=== PATIENT | female | born 1980 | race African-American/Black ===

== ENCOUNTER 2018-08-25 05:00 | Inpatient (IN) ==
[2018-08-25] MEDS ORDERED: ONDANSETRON 4 MG/2 ML VIAL IV STA (06:02)
[2018-08-25] MEDS ORDERED: SODIUM CHLORIDE 0.9% 1,000 ML IV STA (06:02)
[2018-08-25 06:08] LABS: Basophils % 0.2 % (0.0-0.8); Hematocrit 44.3 VOL% (35.7-47.0); Hemoglobin 14.2 GM/DL (12.0-16.0); Immature Granulocytes % 0.3 %; Immature Granulocytes Absolute 0.04 #; Lymphocytes # 2.3 10*3/uL (1.4-4.0); Lymphocytes % 17.5 % (21.3-54.2); Mean Corpuscular HGB Conc 32.1 GM/DL (32-36); Mean Corpuscular Hemoglobin 26 PG (27-34); Mean Corpuscular Volume 80.1 FL (87-102); Mean Platelet Volume 10.6 FL (9.6-12.0); Monocytes # 0.7 10*3/uL (0.11-0.8); Monocytes % 5.4 % (1.7-12.7); Neutrophils # 10.1 10*3/uL (1.4-7.4); Neutrophils % 76.6 % (38.7-73.9); Platelet Count 305 T/CUMM (130-400); Red Blood Count 5.53 MC/CUMM (3.8-5.5); Red Cell Distribution Width 15.7 % (9.3-17.3); White Blood Count 13.2 T/CUMM (4-12)
[2018-08-25 06:30] LABS: Alanine Aminotransferase 28 U/L (13-56); Alkaline Phosphatase 101 U/L (45-117); Aspartate Amino Transferase 25 U/L (0-37); Blood Urea Nitrogen 23 MG/DL (7-18); Calcium 9.5 MG/DL (8.5-10.1); Glucose 120 MG/DL (74-106); Lipase < 50.0 U/L (73-393); Osmolality,Calculated 283.4 MOS/KG (273-304); Potassium 3.4 MMOL/L (3.5-5.1); Sodium 140 MMOL/L (136-145)
[2018-08-25 06:34] LABS: Apearance,Urine CLOUDY (Clear); Bilirubin,Urine Small mg/dL (Negative); Blood, Urine Moderate mg/dL (Negative); Glucose,Urine (UA) 50 mg/dL (Negative); Hyaline Casts,Urine 25 /LPF (0-3); Ketones,Urine 80 mg/dL (Negative); Mucus,Urine Many /LPF (Occasional); Nitrite,Urine Negative (Negative); Protein,Urine >=500 MG/DL; RBC,Urine 12 /HPF (0-4); Squamous Epithelial Cell,Urine Few /HPF (0-10); Urine Color Amber (Yellow); Urine Specific Gravity 1.034 (1.001-1.035); WBC,Urine 3 /HPF (0-6)
[2018-08-25] MEDS ORDERED: PANTOPRAZOLE 40 MG VIAL IV STA (06:45)
[2018-08-25] MEDS ORDERED: POTASSIUM CHLORIDE RIDER 10 MEQ in PREMIX 1 EACH IV PRN (07:54)
[2018-08-25] MEDS ORDERED: metroNIDAZOLE INJ 500 MG in PREMIX 1 EACH IV SCH (09:00)
[2018-08-25] MEDS: PANTOPRAZOLE 40 MG VIAL IV SCH (10:34)
[2018-08-25] MEDS: ONDANSETRON 4 MG/2 ML VIAL IV PRN (10:47)
[2018-08-25 11:07] LABS: Hematocrit 41.7 VOL% (35.7-47.0); Hemoglobin 13.2 GM/DL (12.0-16.0)
[2018-08-25] MEDS: CIPROFLOXACIN INJ 400 MG in PREMIX 1 EACH IV SCH ×2 (12:00→20:35)
[2018-08-25] MEDS: NICOTINE 21 MG/24 HR PATCH TRANSDERM SCH (12:00)
[2018-08-25] MEDS: SODIUM CHLORIDE 0.9% 1,000 ML IV SCH ×2 (12:00→23:56)
[2018-08-25] MEDS ORDERED: ACETAMINOPHEN 325 MG TABLET PO PRN (15:22)
[2018-08-25 16:00] LABS: Hematocrit 41.3 VOL% (35.7-47.0); Hemoglobin 13.1 GM/DL (12.0-16.0)
[2018-08-25 22:02] LABS: Hematocrit 42.1 VOL% (35.7-47.0); Hemoglobin 13.2 GM/DL (12.0-16.0)
[2018-08-25] MEDS ORDERED: METHOCARBAMOL INJ 750 MG in SODIUM CHLORIDE 0.9% 100 ML IV ONE (23:30)
[2018-08-26] MEDS: ONDANSETRON 4 MG/2 ML VIAL IV PRN ×2 (04:57→08:43)
[2018-08-26] MEDS: SODIUM CHLORIDE 0.9% 1,000 ML IV SCH ×2 (04:57→16:38)
[2018-08-26 05:43] LABS: Basophils % 0.5 % (0.0-0.8); Hematocrit 41.3 VOL% (35.7-47.0); Immature Granulocytes % 0.2 %; Immature Granulocytes Absolute 0.02 #; Lymphocytes # 2.1 10*3/uL (1.4-4.0); Mean Corpuscular HGB Conc 31.5 GM/DL (32-36); Mean Corpuscular Hemoglobin 26 PG (27-34); Mean Corpuscular Volume 82.6 FL (87-102); Mean Platelet Volume 10.7 FL (9.6-12.0); Monocytes # 0.7 10*3/uL (0.11-0.8); Neutrophils # 5.6 10*3/uL (1.4-7.4); Neutrophils % 66.3 % (38.7-73.9); Platelet Count 278 T/CUMM (130-400); Red Cell Distribution Width 15.9 % (9.3-17.3); White Blood Count 8.5 T/CUMM (4-12)
[2018-08-26 06:01] LABS: Calcium 9.1 MG/DL (8.5-10.1); Osmolality,Calculated 284.1 MOS/KG (273-304); Potassium 3.6 MMOL/L (3.5-5.1)
[2018-08-26] MEDS: NICOTINE 21 MG/24 HR PATCH TRANSDERM SCH (08:43)
[2018-08-26] MEDS: PANTOPRAZOLE 40 MG VIAL IV SCH ×2 (08:43→21:41)
[2018-08-26] MEDS: CIPROFLOXACIN INJ 400 MG in PREMIX 1 EACH IV SCH (08:43)
[2018-08-26] MEDS ORDERED: LIDOCAINE 2% 5 ML VIAL ONE (10:54)
[2018-08-26] MEDS ORDERED: PROPOFOL 200 MG/20 ML VIAL IV ONE (10:54)
[2018-08-26 13:06] LABS: Hematocrit 39.2 VOL% (35.7-47.0); Hemoglobin 12.2 GM/DL (12.0-16.0)
[2018-08-26] MEDS ORDERED: ONDANSETRON 4 MG/2 ML VIAL IV PRN (16:15)
[2018-08-26] MEDS ORDERED: MORPHINE 4 MG/1 ML VIAL IV PRN (16:16)
[2018-08-26] MEDS: PROMETHAZINE 25 MG/1 ML VIAL IM PRN (16:38)
[2018-08-27] MEDS: SODIUM CHLORIDE 0.9% 1,000 ML IV SCH ×3 (02:29→09:18)
[2018-08-27] MEDS: NICOTINE 21 MG/24 HR PATCH TRANSDERM SCH (09:11)
[2018-08-27] MEDS: PANTOPRAZOLE 40 MG VIAL IV SCH (09:14)
[2018-08-27 12:20] VITALS: BP 136/78
[2018-08-27] MEDS: PROMETHAZINE 25 MG/1 ML VIAL IM PRN (12:45)
== END 2018-08-27 13:55 | disposition home or self-care (01) | DRG 378 ==
LOC: N.ED 05:00 → SUATTDRO 07:44 → N.EDINP 07:44 → N.5E 10:01
PROVIDERS: ADMIT Internal Medicine Nephrology; ATTEND Emergency Medicine